=== PATIENT | female | born 2000 | race Caucasian/White ===

== ENCOUNTER 2020-06-22 11:14 | Emergency (ER) | payer BC, SELFPAY ==
[2020-06-22 11:28] VITALS: BP 120/64; PULSE 86; RESP 18; TEMP 37.4; O2SAT 97
[2020-06-22 11:43] VITALS: BP 120/64; PULSE 86; RESP 18; TEMP 37.4; O2SAT 97
--- NOTE | 2020-06-22 12:09 | ED.GENADULT ---
HPI - General Adult General Chief complaint: Upper Respiratory Infection Stated complaint: Cough/Congestion Source: patient Mode of arrival: ambulatory Limitations: no limitations History of Present Illness HPI narrative: This is a very pleasant 19-year-old female that presents with complaints of sore throat and sinus congestion for the last 24 hours. She reports some yellow sinus drainage and came in for evaluation today. She is a student at [employer] and is returning back to college tomorrow. She denies any fever, chills, nausea, vomiting. She states she had Covid in January 2020 and had is experienced a persistent sensation that she needs to clear (her) throat . However she denies any significant cough and also denies shortness of breath and chest pain. No recent known sick contacts. She does not smoke. She is not on any contraception and denies any leg swelling and history of VTE. No surgeries within the last 4 weeks. No additional complaints or concerns. Related Data Home Medications Medication Instructions Recorded Confirmed No Home Medications 06/22/20 06/22/20 Allergies Allergy/AdvReac Type Severity Reaction Status Date / Time No Known Allergies Allergy Verified 06/22/20 11:42 Review of Systems Review of Systems: Narrative: CONSTITUTIONAL: Denies fever, chills, or sweats. EYES: Denies visual changes, redness, or discharge. ENT: Reports sore throat, sinus congestion and yellow drainage. Denies any otalgia. CARDIOVASCULAR: Denies chest pain, palpitations, or edema. RESPIRATORY: Denies cough or dyspnea. GASTROINTESTINAL: Denies abdominal pain, nausea, vomiting, or diarrhea. GENITOURINARY: Denies dysuria or hematuria. SKIN: Denies rash or itching. MUSCULOSKELETAL: Denies back pain, joint pain, or myalgia. NEUROLOGIC: Denies headache, numbness, dizziness, or weakness. PSYCHIATRIC: Denies anxiety or depression. [facility] Past Medical History Medical History (Updated 06/22/20 @ 12:19 by Igor Hadley, STEVEN, SANDRA) No pertinent past medical history Surgical History Surgical History (Updated 06/22/20 @ 12:12 by STEVEN Starks, SANDRA) No pertinent past surgical history Family History Family History Father Cancer Mother No significant past medical history Social History Social History Smoking status: Never smoker Alcohol intake: current Alcohol use details: Occasional social intake Substance use: never Additional living arrangements comments: sor[facility] home Occupation/Education: student Gender identity (if verbalized by the patient): Female Spiritual care concerns: No Exam Narrative: Exam Narrative: GENERAL: Well-appearing, well-nourished, and in no acute distress. HEAD: Normocephalic, atraumatic. EYES: PERRLA and EOMI. ENT: Nares clear, no rhinorrhea or epistaxis. Mucous membranes moist. Oropharynx without tonsillar hypertrophy or exudate. There is posterior pharyngeal erythema noted. Right tympanic membrane is erythematous without bulging or significant middle ear fluid noted. Left tympanic membrane is normal in appearance. NECK: Supple. No adenopathy or masses. No carotid bruits or JVD CHEST: Clear to auscultation. No respiratory distress. No wheezes rales or rhonchi HEART: Regular rate and rhythm. No murmur heard. Normal peripheral pulses. ABDOMEN: Soft, nontender, nondistended, normal active bowel sounds. EXTREMITIES: Normal range of motion. No edema. SKIN: Warm, dry, no rash. NEURO: No focal deficits. Alert and oriented x3. PSYCH: Normal mood and affect. Course Course Emergency Course: This is a very pleasant 19-year-old female with 24-hour history of sinus congestion, drainage, and sore throat. She did test positive for Covid in January 2020 and has residual sensation that she needs to clear her throat. She has no significant cough or amy
[2020-06-23 16:31] LABS: SARS-CoV-2 RNA PCR Negative
== END 2020-06-22 13:20 | disposition home or self-care (01) ==
LOC: EXPBETH 12:20 → EXPBRAD 10-11 10:52
PROVIDERS: Nurse Practitioner; Emergency Provider Family Medicine; PCP Family Medicine
DX: J02.9 Acute pharyngitis, unspecified (principal); Z20.822 Contact with and (suspected) exposure to COVID-19; Z86.16 Personal history of COVID-19
CPT/HCPCS: 71046; 87081; 87426; 87880; 99213; C9803; G0463; U0003; U0005

== ENCOUNTER → 2020-10-10 12:01 | Outpatient (CLI) | payer BC, SELFPAY ==
--- NOTE | ~2020-10-10 | XR_ITS ---
CORRECTED REPORT Report moved from [id number]. 10[place]20/2020 [facility] [place]R chest 2V DATE: 10/10/2020 12:15 INDICATION: Chronic cough TECHNIQUE: PA and lateral views of the chest were obtained. COMPARISON: None FINDINGS: The lungs are clear with no focal airspace opacities, pulmonary edema, pleural effusion or pneumothorax. The cardiomediastinal silhouette is normal. Visualized bones and soft tissues are unremarkable. IMPRESSION: 1. Normal chest radiograph. Reviewed, dictated and finalized at location A. GORGE
== END ==
PROVIDERS: PCP Family Medicine; Visit Provider Family Medicine
DX: R05 Cough (principal)
CPT/HCPCS: 71046

== ENCOUNTER 2021-06-01 14:10 | Outpatient (CLI) | payer BC, SELFPAY ==
[2021-06-01 15:35] LABS: SARS-CoV-2 RNA PCR Negative (Negative)
== END 2021-06-01 14:11 | disposition home or self-care (01) ==
LOC: CHSLAB 14:14
PROVIDERS: PCP Family Medicine; Visit Provider Family Medicine
DX: Z20.822 Contact with and (suspected) exposure to COVID-19 (principal)
CPT/HCPCS: C9803; U0003; U0005

== ENCOUNTER 2023-08-30 10:16 | Outpatient (CLI) | payer BC, SELFPAY ==
--- NOTE | ~2023-08-30 | MR_ITS ---
EXAMINATION: MR ankle LT wo con DATE: 08/30/2023 10:51 INDICATION: Plantar fascial fibromatosis TECHNIQUE: Magnetic resonance imaging (MRI) of the left ankle was performed without intravenous contr ast. Sequences included sagittal, coronal, and axial proton-density weighted fast spin echo without a nd with fat saturation. A marker was placed at the region of concern. COMPARISON: None. FINDINGS: Medial ankle ligaments: Deep and superficial deltoid ligaments as well as the spring ligament are normal. Lateral ankle ligaments: The anterior and posterior inferior tibiofibular ligaments are normal. The anterior talofibular, calc aneofibular and posterior talofibular ligaments are normal. Tendons: Achilles tendon is normal. The peroneus longus and brevis tendons are normal. The tibialis anterior a nd extensor hallucis longus and extensor digitorum longus tendons are normal. The tibialis posterior, flexor digitorum longus and flexor hallucis longus tendons are normal. Plantar fascia: Plantar aponeurosis is normal. Specifically no focal thickening of the aponeurosis in the region of c oncern to suggest a plantar fibroma. Slightly distal to the marker at the distalmost margin of imagin g there is a partially visualized 7 x 5 mm homogeneously macroscopic fat signal lesion with smooth ma rgins situated plantar to the mid diaphyses of the first and second metatarsals likely representing a small lipoma. This is best appreciated on coronal series 7, image 30 and sagittal series 5, image 7. Bones/other: Bone alignment is normal. Normal marrow signal throughout. No or reactive edema, fracture or patholog ic marrow replacing process. Joint spaces are normal. Fluid: Physiologic amount fluid in the joint spaces. No tenosynovitis, bursitis or other abnormal fluid elysia ections. IMPRESSION: 1. No thickening of the normal-appearing plantar aponeurosis to suggest fibromatosis. There is howeve r a partially visualized 5 x 7 mm ovoid macroscopic fat attenuation lesion with relatively well-defin ed margins along the plantar aponeurosis slightly distal to the marker indicating the region of kenisha rn which could represent a small lipoma. Reviewed, dictated and finalized at location A. IMPRESSION: 1. No thickening of the normal-appearing plantar aponeurosis to suggest fibroma tosis. There is however a partially visualized 5 x 7 mm ovoid macroscopic fat a ttenuation lesion with relatively well-defined margins along the plantar aponeu rosis slightly distal to the marker indicating the region of concern which coul d represent a small lipoma.
== END 2023-08-30 10:17 ==
PROVIDERS: PCP Podiatrist Foot & Ankle Surgery; Visit Provider Podiatrist Foot & Ankle Surgery
DX: M72.2 Plantar fascial fibromatosis (principal)
CPT/HCPCS: 73721

== ENCOUNTER 2024-02-29 13:06 | Emergency (ER) | payer OTHER, SELFPAY ==
[2024-02-29 13:11] VITALS: BP 124/63; PULSE 75; RESP 18; TEMP 36.6; O2SAT 100
--- NOTE | 2024-02-29 13:16 | ED.URI ---
HPI - URI/Sore Throat General Stated Complaint: sore throat Time Seen by Provider: 02/29/24 13:17 History of Present Illness HPI Narrative: 23 y/o female presented for c/o sore throat x2 days. Denies any associated symptoms. Taking ibuprofen. Rates pain 12/13. Related Data Allergies Allergy/AdvReac Type Severity Reaction Status Date / Time No Known Allergies Allergy Verified 02/29/24 13:27 Review of Systems Review of Systems: CONSTITUTIONAL: Denies body aches, fever, chills, or sweats. EYES: Denies visual changes, redness, or discharge. ENT: reports sore throat Denies rhinorrhea, congestion, or otalgia. CARDIOVASCULAR: Denies chest pain, palpitations, or edema. RESPIRATORY: Denies dyspnea. GASTROINTESTINAL: Denies abdominal pain, nausea, vomiting, or diarrhea. SKIN: Denies rash, itching, or wounds. MUSCULOSKELETAL: Denies back pain, joint pain, or myalgia. NEUROLOGIC: Denies headache PMFSH Past Medical History Medical History No pertinent past medical history Surgical History Surgical History No pertinent past surgical history Family History Family History Father Cancer Mother No significant past medical history Social History Social History Smoking status: Never smoker Second hand tobacco smoke exposure: No Alcohol intake: current Alcohol use details: Occasional social intake Substance use: never Substance use type: does not use Do You Feel Safe in your Home?: Yes Lack of Transportation: No Lack of Food: Never True Current Housing: I Have Housing Concerned About Future Housing: No Difficulty Paying Gas/Electric Bills: No Difficulty Paying for Meds: No Currently Unemployed: No Education: Bachelor's Degree Difficulty w/ Childcare or Family Care: No Living arrangements: with family Additional living arrangements comments: [facility] home Occupation/Education: student Gender identity (if verbalized by the patient): Female Sexual Orientation (if Verbalized by the Patient): Lesbian, Bee, or Homosexual Spiritual care concerns: No Exam Narrative: GENERAL: well-appearing, no acute distress. EYES: conjunctivae clear ENT: Mucous membranes moist. TMs pearly vinson with normal light reflex bilaterally; no tragal tenderness. Oropharynx severely erythematous without lesions. Tonsils enlarged with exudate. No drooling, no hoarseness, no trismus, uvula midline. No tripod positioning, hot potato voice, or soft palate swelling. NECK: Supple. No lymphadenopathy CHEST: Clear to auscultation, breath sounds equal. No respiratory distress, speaks in full sentences. HEART: Regular rate and rhythm. No murmur heard. SKIN: Warm, dry, no rash. NEURO: Alert and oriented x3. Course Course Emergency Course: Patient is aware of diagnosis, understands and agrees to treatment plan. Anticipatory guidance given. Patient agrees to follow-up as directed and is aware of reasons to seek care at the emergency department. Portions of this record may have been created with voice recognition software Level of Care: Express Care Visit MDM - URI/Sore Throat MDM Narrative Medical decision making narrative: neg strep result reviewed with pt. will treat for strep based on PE and CC. pt is agreeable. Advise supportive treatments. Patient is appropriate for outpatient treatment and follow-up. Differential Diagnosis Differential diagnosis: Likely upper respiratory infection, viral infection and pharyngitis Discharge Plan Discharge Clinical Impression: Exudative tonsillitis Patient Disposition: Home, Self-Care Condition: Stable Instructions: Antibiotic Form, Strep Throat (ED) Additional Instructions: - Take the antibiotic as directed. Fever and sore thro
[2024-02-29 13:32] LABS: EDSTREPNEGPOS1 Negative (Negative)
== END 2024-02-29 13:30 | disposition home or self-care (01) ==
PROVIDERS: Emergency Provider Nurse Practitioner Family; PCP Family Medicine
DX: J03.90 Acute tonsillitis, unspecified (principal)
CPT/HCPCS: 87081; 87880; 99213; G0463